=== PATIENT | male | born 1950 | race Caucasian/White ===

== ENCOUNTER 2017-09-16 21:25 | Emergency (ER) | payer MEDICARE, OTHER, SELFPAY ==
[2017-09-16 21:26] VITALS: BP 172/76; PULSE 55; RESP 14; TEMP 36.4; O2SAT 100; BMI 24.7
[2017-09-16] MEDS: DiphenhydrAMINE 25 MG Capsule 50 MG PO (22:14)
[2017-09-16] MEDS: predniSONE 20 MG Tablet 60 MG PO (22:14)
[2017-09-16 22:17] VITALS: BP 137/90; PULSE 54; RESP 16; O2SAT 97
[2017-09-16 23:14] VITALS: BP 121/64; PULSE 52; RESP 14; O2SAT 98
--- NOTE | 2017-09-16 23:20 | ED.DCSUM_ITS ---
- ER Visit Summary Date of Service: 09/16/17 Chief Complaint: Rash History of Present Illness: The patient is a 67 M presenting for evaluation secondary to a rash. Patient states that at approximately 730 tonight he started to notice a itchy rash on his forearms bilaterally. Patient states that he was concerned because it spread to his abdomen chest back and behind his legs. He denies any tongue or lip swelling. Patient denies any prior similar episodes in the past. Patient states that he took some Imodium this morning, has never taken that in the past. Patient also states that he went out to [place] tonight [place]. Denies any shortness breath. Review of systems otherwise negative. Physical Examination: Vital signs within normal limits. Patient shows no evidence of lip or tongue or oral swelling. Clear posterior oropharynx. Lungs are clear no respiratory distress. Skin exam shows diffuse urticaria. Test Results: None indicated Emergency Department Course and Treatment: Patient presented secondary to a rash. Rash seems most consistent with urticaria. Patient was given prednisone and Benadryl was observed in the emergency department for an hour and a half and a repeat evaluation did have improvement of his skin rash. Patient will be discharged with a course of prednisone. Disposition: Discharge Impression: 1. Urticaria This note was generated with [employer] dictation software. It may contain incorrect words, spelling, and punctuation that were not noted in review of the chart prior to signing ED Disposition - Plan for ED Patient: Disposition: Home or Assisted Living Chief Complaint: Allergic Reaction Diagnosis: Urticaria Instructions: ED Allergic Reaction General Other Prescriptions: Prednisone 40 mg PO DAILY #8 tab Referrals: [facility] Doctor,Out of [Primary Care Provider] - 3-5 Days if not improving
== END 2017-09-16 23:25 | disposition home or self-care (01) ==
PROVIDERS: Emergency Provider Emergency Medicine
DX: L50.9 Urticaria, unspecified (principal); Z79.82 Long term (current) use of aspirin; Z79.899 Other long term (current) drug therapy
CPT/HCPCS: 99283